=== PATIENT | male | born 1950 | race Two or more races ===

== ENCOUNTER 2018-01-03 20:43 | Emergency (ER) | payer MEDICARE, OTHER ==
[~2018-01-03] VITALS: Ht 170.2 cm; Wt 84.4 kg
[2018-01-03] MEDS ORDERED: Morphine Sulfate 4mg/ml Inj ONE (22:02)
[2018-01-03] MEDS ORDERED: Morphine Sulfate 4mg/ml Inj IVP ONE (22:15)
[2018-01-03 22:20] LABS: HEMATOCRIT 24.9 % (42.0-52.0); HEMOGLOBIN 7.9 G/DL (14.2-18.0); MEAN CORPUSCULAR VOLUME 73 FL (80-99); PLATELET COUNT 482 K/UL (150-450); RED CELL DISTRIBUTION WIDTH 14.3 % (11.6-14.8); WHITE BLOOD COUNT 14.3 K/UL (4.8-10.8)
[2018-01-03 22:21] LABS: LYMPHOCYTES % (AUTO) 4.9 % (20.0-45.0); MONOCYTES % (AUTO) 5.4 % (1.0-10.0); NEUTROPHILS % (AUTO) 88.9 % (45.0-75.0)
[2018-01-03 22:22] LABS: BASOPHILS % (AUTO) 0.5 % (0.0-2.0); EOSINOPHILS % (AUTO) 0.3 % (0.0-3.0)
[2018-01-03 22:25] LABS: APPEARANCE,URINE TURBID; BILIRUBIN, URINE NEGATIVE (NEGATIVE); GLUCOSE, URINE (UA) NEGATIVE (NEGATIVE); KETONES,URINE NEGATIVE (NEGATIVE); LEUKOCYTE ESTERASE ,URINE 1+ (NEGATIVE); NITRITE,URINE NEGATIVE (NEGATIVE); PH,URINE 6.5 (4.5-8.0); PROTEIN,URINE 4+ (NEGATIVE); UROBILINOGEN,URINE NORMAL MG/DL (0.0-1.0)
[2018-01-03 22:27] LABS: COLOR,URINE RED
[2018-01-03 22:31] LABS: ANION GAP 12 mmol/L (5-15); BLOOD UREA NITROGEN 30 mg/dL (7-18); CALCIUM 8.6 MG/DL (8.5-10.1); CARBON DIOXIDE 22 MMOL/L (21-32); CHLORIDE 100 MMOL/L (98-107); CREATININE 1.7 MG/DL (0.55-1.30); POTASSIUM 3.7 MMOL/L (3.5-5.1); SODIUM 134 MMOL/L (136-145)
--- NOTE | 2018-01-03 23:25 | Emergency Room Report ---
History of Present Illness General Chief Complaint: Male Urogenital Problems Source: Patient, EMS Present Illness HPI This is 69-year-old male with a history of prostate enlargement and urinary retention. He has multiple Foleys in the past. He was just discharged from [facility] ER for urinary retention hematuria. He was on antibiotics and a Ca was changed. He came in with complaint of pain and hematuria. Pain is 10 out of 10. Unable to fill his [place] prescription. No nausea no vomiting. No other complaint. Allergies: Coded Allergies: No Known Allergies (Unverified , 01/03/18) Patient History Past Medical History: see triage record, old chart reviewed Past Surgical History: other Pertinent Family History: none Social History: Denies: smoking Immunizations: other Reviewed Nursing Documentation: PMH: Agreed, PSxH: Agreed Nursing Documentation-PMH Hx Cardiac Problems: Yes - ARRYTHMIA Hx Hypertension: Yes Hx Diabetes: Yes Hx Cancer: Yes - STOMACH ? Review of Systems Eye: Denies: eye pain, blurred vision ENT: Denies: ear pain, nose congestion, throat swelling Respiratory: Denies: cough, shortness of breath Cardiovascular: Denies: chest pain, palpitations Gastrointestinal: Denies: abdominal pain, diarrhea, nausea, vomiting Genitourinary: Reports: dysuria, hematuria Musculoskeletal: Denies: back pain, joint pain Skin: Denies: rash Neurological: Denies: headache, numbness Endocrine: Denies: increased thirst, increased urine Hematologic/Lymphatic: Denies: easy bruising All Other Systems: negative except mentioned in HPI Physical Exam Vital Signs Date Time Temp Pulse Resp B/P (MAP) Pulse Ox O2 Delivery O2 Flow Rate FiO2 01/03/18 20:31 98.7 96 16 148/77 100 Room Air 98.8 vitals normal Sp02 EP Interpretation: reviewed, normal General Appearance: well appearing, no apparent distress, alert Head: normocephalic, atraumatic Eyes: bilateral eye PERRL, bilateral eye EOMI ENT: hearing grossly normal, normal pharynx Neck: full range of motion, supple, no meningismus Respiratory: chest non-tender, lungs clear, normal breath sounds Cardiovascular #1: regular rate, rhythm, no murmur Gastrointestinal: normal bowel sounds, non tender, no mass, no organomegaly, no bruit, non-distended Genitourinary: other - Patient has a 16 [place] Ca. There is gross hematuria in the bag. There is also blood and urine leaking around the Ca. Musculoskeletal: back normal, gait/station normal, normal range of motion Neurologic: alert, oriented x3 Psychiatric: mood/affect normal Skin: warm/dry Procedures Additional Procedure Procedure Narrative Procedure: Ca insertion Indication: Urinary retention Description: Initially, RN placed an 18 [place]ri[place] Ca. There was no drainage from that and there is drainage around the Ca. I removed his Ca in place a 30 Syriac 3-way Ca. It irrigated easily and clots were removed. Hematuria is now just very light. Medical Decision Making Diagnostic Impression: Primary Impression: Urinary retention Additional Impressions: Hematuria, gross CKD (chronic kidney disease) Qualified Codes: N18.9 - Chronic kidney disease, unspecified Anemia Qualified Codes: D64.9 - Anemia, unspecified ER Course Patient with gross hematuria and urinary retention. I irrigated the Ca without any difficulty. We'll discharge home with urology follow-up. I will keep in the 3-way Ca in case he need future irrigation. Patient has an appointment with his doctor today at 10 AM. He had blood work done last week and said his doctor will make a referral. He felt better after irrigation. There is no more retention. Last Vital Signs Date Time Temp Pulse Resp B/P (MAP) Pulse Ox O2 Delivery O2 Flow Rate FiO2 01/03/18 20:31 98.7 96 16 148/77 100 Room Air 98.8 Status: improved Disposition: HOME, SELF-CARE Condition: Stable Scripts Hydrocodone Bit/Acetaminophen 5-325* (NORCO 5-325*) 1 Each Tablet 1 TAB ORAL Q6H Y for For Pain, #20 TAB 0 Refills Prov: MARYURI ROCA M.D. 01/03/18 Referrals: CODY LOBO (PCP) Additional Instructions: Keep your appointment with your DrDominique at 10 AM today. Return if symptom worsen. MARYURI ROCA M.D. Jan 03, 2018 23:25
[2018-01-03] MEDS ORDERED: Norco 5mg/325mg tab ORAL ONE (23:45)
[2018-01-03] MEDS ORDERED: NORCO 5-325 TA1 EACH ORAL (23:59)
[2018-01-04 02:13] VITALS: BP 135/89
== END 2018-01-04 02:14 | disposition home or self-care (01) ==
LOC: EDBD 20:43 → EMR 21:25 → EDBD 21:25 → EMR 01-04 02:14
DX: R33.9 Retention of urine, unspecified (principal); R31.0 Gross hematuria; I12.9 Hypertensive chronic kidney disease with stage 1 through stage 4 chronic kidney disease, or unspecified chronic kidney disease; N18.9 Chronic kidney disease, unspecified; D64.9 Anemia, unspecified; Z85.028 Personal history of other malignant neoplasm of stomach
CPT/HCPCS: 36415; 80048; 81001; 85025; 85610; 85730; 87086; 96374; 96375; 99284; J2270; J2405